=== PATIENT | female | born 1950 | race Caucasian/White ===

== ENCOUNTER 2019-04-09 18:58 | Inpatient (IN) | payer MEDICARE ==
[~2019-04-09] VITALS: Ht 160 cm; Wt 60.3 kg
[2019-04-09] VITALS (9 sets, daily range): BP systolic 137–158; BP diastolic 63–76
[2019-04-09 20:06] LABS: BASOPHILS 0.2 % (0-2); EOSINOPHILS 0.4 % (0-7); HEMATOCRIT 22.5 % (36.0-48.0); HEMOGLOBIN 7.6 g/dL (12-16); LYMPHOCYTES 12.3 % (15-50); MCH 29.9 pg (26.0-34.0); MCHC 33.8 g/dL (31.0-37.0); MCV 88.6 fL (80.0-100.0); MEAN PLATELET VOLUME 8.4 fL (7.4-10.4); NEUTROPHILS 77.1 % (40-80); PLATELET COUNT 278 10x3/uL (130-400); RBC 2.54 10x6/uL (4.00-5.40); RDW 15.4 % (11.5-14.5)
[2019-04-09 20:16] LABS: APTT 29.3 SECONDS (22.8-39.4); INR 1.23 (0.85-1.17)
[2019-04-09 20:21] LABS: ALBUMIN 2.4 g/dL (3.4-5.0); ALKALINE PHOSPHATASE 47 U/L (46-116); ALT (SGPT) 27 U/L (10-68); BILIRUBIN - TOTAL 0.23 mg/dL (0.2-1.3); CALC OSMOLALITY 292 mosm/kg (275-300); CALCIUM 8.6 mg/dL (8.5-10.1); CARBON DIOXIDE 32.2 mmol/L (21.0-32.0); CHLORIDE - SERUM 106 mmol/L (98-107); CREATININE - SERUM 0.6 mg/dL (0.6-1.3); GLUCOSE 111 mg/dL (74-106); POTASSIUM - SERUM 3.5 mmol/L (3.5-5.1); PROTEIN - SERUM 6.3 g/dL (6.4-8.2); SODIUM 145 mmol/L (136-145); UREA NITROGEN 21 mg/dL (7-18); eGFR NON AFRICAN AMERICAN > 90 mL/min (90-120)
--- NOTE | 2019-04-09 22:00 | NUR ---
BLODD STARTED AT THIS TIME. WITNESSED BY PASTOR YODER.
[2019-04-10] VITALS: BP 130/61
--- NOTE | 2019-04-10 00:19 | NUR ---
PT TRANSFERED WITH BLOOD INFUSING AT 200 ML/HR
[2019-04-10] MEDS ORDERED: FUROSEMIDE40 MG PO (01:16)
[2019-04-10] MEDS ORDERED: LIPITOR40 MG PO (01:17)
[2019-04-10] MEDS ORDERED: PERCOCET 5-3251 TAB PO (01:18)
[2019-04-10] MEDS ORDERED: AMBIEN5 MG PO (01:18)
[2019-04-10] MEDS ORDERED: COREG12.5 MG PO (01:19)
[2019-04-10] MEDS ORDERED: LANOXIN125 MCG PO (01:20)
[2019-04-10] MEDS ORDERED: PLAVIX75 MG PO (01:21)
[2019-04-10] MEDS ORDERED: COZAAR50 MG PO (01:21)
[2019-04-10] MEDS ORDERED: ZOLOFT100 MG PO (01:22)
[2019-04-10 02:18] VITALS: BP 130/61; BMI 23.6
[2019-04-10 04:00] VITALS: BP 134/59
[2019-04-10 05:14] LABS: APPEARANCE CLEAR (CLEAR); BILIRUBIN NEGATIVE (NEGATIVE); COLOR YELLOW (YELLOW); GLUCOSE NEGATIVE (NEGATIVE); KETONE NEGATIVE (NEGATIVE); NITRITE NEGATIVE (NEGATIVE); PROTEIN NEGATIVE (NEGATIVE); UROBILINOGEN NORMAL (NORMAL)
[2019-04-10 06:40] LABS: BASOPHILS 0.2 % (0-2); EOSINOPHILS 1.2 % (0-7); HEMATOCRIT 22.9 % (36.0-48.0); HEMOGLOBIN 7.9 g/dL (12-16); IMMATURE GRANULOCYTES 2.7 % (0-5); LYMPHOCYTES 13.5 % (15-50); MCH 30.4 pg (26.0-34.0); MCHC 34.5 g/dL (31.0-37.0); MCV 88.1 fL (80.0-100.0); MEAN PLATELET VOLUME 8.6 fL (7.4-10.4); MONOCYTES 12.2 % (2-11); NEUTROPHILS 70.2 % (40-80); RDW 15.9 % (11.5-14.5); WBC 9.8 10x3/uL (4.8-10.8)
[2019-04-10 06:55] LABS: CALC OSMOLALITY 293 mosm/kg (275-300); CALCIUM 8.1 mg/dL (8.5-10.1); CARBON DIOXIDE 32.6 mmol/L (21.0-32.0); CHLORIDE - SERUM 110 mmol/L (98-107); CREATININE - SERUM 0.6 mg/dL (0.6-1.3); GLUCOSE 99 mg/dL (74-106); MAGNESIUM - SERUM 1.9 mg/dL (1.8-2.4); PHOSPHOROUS 2.6 mg/dL (2.5-4.9); POTASSIUM - SERUM 3.5 mmol/L (3.5-5.1); PRO BNP 4652 pg/mL (0-125); SODIUM 146 mmol/L (136-145); UREA NITROGEN 21 mg/dL (7-18); eGFR NON AFRICAN AMERICAN > 90 mL/min (90-120)
[2019-04-10 06:59] LABS: PLATELET COUNT 222 10x3/uL (130-400)
[2019-04-10] MEDS ORDERED: PEPCID AC20 MG PO (07:23)
[2019-04-10] MEDS ORDERED: ALBUTEROL SULF8.5 GM INH (07:23)
[2019-04-10] MEDS ORDERED: ADVIL200 MG PO (07:24)
[2019-04-10 08:26] LABS: APTT 34.6 SECONDS (22.8-39.4); INR 1.3 (0.85-1.17); PROTIME 15.6 SECONDS (11.6-15.0)
[2019-04-10 08:44] VITALS: BP 134/58
[2019-04-10 10:05] VITALS: BMI 23.5
--- NOTE | 2019-04-10 12:59 | NUR ---
ARRIVED BACK FROM IR AT THIS TIME WITH DRAINAGE BAG NOTED TO LEFT SIDE WITH 500 ML EMPTIED. DENIES ANY PAIN OR DISCOMFORT AT THIS TIME. C/L IN REACH AT BEDSIDE.
--- NOTE | 2019-04-10 13:34 | NUR ---
FIRST UNIT OF PRBC STARTED AT THIS TIME VIA RN. NO C/O NOTED OR VOICED. ABLE TO VOICE NEEDS AND WANTS. C/L IN REACH AT BEDSIDE.
[2019-04-10 14:04] VITALS: Ht 160 cm; Wt 60.3 kg
--- NOTE | 2019-04-10 16:05 | NUR ---
SECOND UNIT OF PRBC WAS STARTED BY RN AT THIS TIME. TOLERATED FIRST UNIT WELL. NO C/O NOTED OR VOICED. C/L IN REACH AT BEDSIDE.
[2019-04-10 17:04] LABS: EOS BF 16 %; MACROPHAGES BF 4 %; MESOTHELIALS BF 3 %; NEUT - BF 74 %
[2019-04-10 20:00] VITALS: BP 168/92
[2019-04-10 20:03] VITALS: BP 120/73
--- NOTE | 2019-04-10 21:51 | NUR ---
PATIENT IN BED IV TO RIGHT FA WITH NS AT 50 AND PROTONIX AT [address] DRAN IN PLACE AND DRANING TO LEFT SIDE. SCD IN ROOM OFF AT THIS TIME. BSC AT BEDSIDE. ALERT AND ORENTED ABLE TO VOICE NEEDS AND WANTS TO STAFF. CALL LIGHT IN REACH BED LOW.
[2019-04-11] VITALS: BP 139/70
--- NOTE | 2019-04-11 01:14 | NUR ---
HOME MED NOTED IN ROOM COUNT COMPLETED WITH PT. PLACED IN PHARMACY BAG AND SEALED WITH PT. WILL TRUN OVER TO PHARMACY IN AM
[2019-04-11 03:18] LABS: HEMATOCRIT 34.6 % (36.0-48.0); HEMOGLOBIN 11.9 g/dL (12-16); MCH 30.8 pg (26.0-34.0); MCHC 34.4 g/dL (31.0-37.0); MCV 89.6 fL (80.0-100.0); MEAN PLATELET VOLUME 9.2 fL (7.4-10.4); PLATELET COUNT 357 10x3/uL (130-400); RBC 3.86 10x6/uL (4.00-5.40); RDW 15.3 % (11.5-14.5); WBC 28.6 10x3/uL (4.8-10.8)
[2019-04-11 03:29] LABS: CALCIUM 8.1 mg/dL (8.5-10.1); CHLORIDE - SERUM 106 mmol/L (98-107); MAGNESIUM - SERUM 1.7 mg/dL (1.8-2.4); SODIUM 140 mmol/L (136-145); UREA NITROGEN 17 mg/dL (7-18)
[2019-04-11 03:34] LABS: CALC OSMOLALITY 289 mosm/kg (275-300); CREATININE - SERUM 0.8 mg/dL (0.6-1.3); GLUCOSE 254 mg/dL (74-106); PHOSPHOROUS 3.5 mg/dL (2.5-4.9); POTASSIUM - SERUM 4.3 mmol/L (3.5-5.1); eGFR NON AFRICAN AMERICAN 75 mL/min (90-120)
[2019-04-11 03:43] LABS: LYMPHOCYTES 6 % (15-50); MONOCYTES 4 % (2-11); NEUTROPHILS 85 % (40-80); PLATELET ESTIMATE NORMAL
[2019-04-11 04:06] LABS: CKMB 1.7 U/L (0.0-3.6); CREATINE KINASE 45 UL (21-215)
[2019-04-11 04:07] LABS: TROPONIN-I 0.536 ng/mL (0.000-0.060)
--- NOTE | 2019-04-11 06:20 | NUR ---
CALL FROM TELEMETRY WITH HR OF 140, PT UP TO BSC AND BACK TO BED AT THAT TIME. MONITORD STAYED AT 140 FOR A SHORT TIME THEN INCREASED TO HR OF160 WITH SOB CALLED A RAPIDRESPONCE. EKG, CARDIAC ENZYMES , MANAGER MATERIALS MANAGEMENT CALED WITH NEW ORDER FOR CHEST X-RAY AND CONSULT FOT DR ANDERSON. dR MOE CALLED AND INFORMED OF HISTORY AND EVENT WELL INCREASED D-DIMER OF 2.78, AND TROPONIN I OF 0.536. DR. ANDERSON STATED THAT'S GOOD I WILL SEE HER IN AM.
--- NOTE | 2019-04-11 06:29 | NUR ---
SHAY TO TELEMETRY HR 125
[2019-04-11 08:59] VITALS: BP 145/87
[2019-04-11 14:37] VITALS: BP 97/53
[2019-04-11 16:49] VITALS: BP 96/54
--- NOTE | 2019-04-11 17:59 | NUR ---
I have reviewed this patient and I concur with the Shift Assessment completed by the Licensed Practical Nurse today this shift.
--- NOTE | 2019-04-11 19:46 | NUR ---
IN BED WITH TV ON, IN PLEASANT MOOD, DENIES ANY PAIN AT THIS TIME. PROTONIX DRIP TO RIGHT FOREARM INFUSING PER ODERS. WILL NOTE ANY CHANGE.
[2019-04-11 19:50] VITALS: BP 88/53
--- NOTE | 2019-04-11 23:52 | NUR ---
RESTING QUIETLY IN BED WITH NO S/S OF ANY ACUTE DISTRESS. TYLENOL GIVEN PRN AT 2230 RELATED TO DISCOMFORT WITH EFFECTIVE RESULTS. DRAINAGE BAG TO ABDOMEN PATENT WITH PURULENT DISCHARGE NOTED. BEDSIDE COMMODE NOTED. O2 AT 3 LITERS PER NC. WILL NOTE ANY CHANGE.
[2019-04-12] VITALS: BP 103/52
--- NOTE | 2019-04-12 02:22 | NUR ---
I have reviewed this patient and I concur with the Shift Assessment completed by the Licensed Practical Nurse today this shift.
[2019-04-12 04:00] VITALS: BP 103/61
[2019-04-12 05:25] LABS: BASOPHILS 0.2 % (0-2); EOSINOPHILS 1.6 % (0-7); HEMATOCRIT 28.6 % (36.0-48.0); HEMOGLOBIN 9.7 g/dL (12-16); IMMATURE GRANULOCYTES 1.5 % (0-5); LYMPHOCYTES 12.4 % (15-50); MCH 30.4 pg (26.0-34.0); MCHC 33.9 g/dL (31.0-37.0); MCV 89.7 fL (80.0-100.0); MEAN PLATELET VOLUME 9.1 fL (7.4-10.4); MONOCYTES 7.3 % (2-11); RBC 3.19 10x6/uL (4.00-5.40); RDW 15.2 % (11.5-14.5)
[2019-04-12 05:43] LABS: CALCIUM 8.3 mg/dL (8.5-10.1); CARBON DIOXIDE 26.5 mmol/L (21.0-32.0); CHLORIDE - SERUM 111 mmol/L (98-107); CREATININE - SERUM 0.6 mg/dL (0.6-1.3); MAGNESIUM - SERUM 1.8 mg/dL (1.8-2.4); PHOSPHOROUS 2.8 mg/dL (2.5-4.9); SODIUM 142 mmol/L (136-145); UREA NITROGEN 14 mg/dL (7-18); eGFR NON AFRICAN AMERICAN > 90 mL/min (90-120)
[2019-04-12 05:45] LABS: CALC OSMOLALITY 284 mosm/kg (275-300); GLUCOSE 109 mg/dL (74-106); POTASSIUM - SERUM 3.5 mmol/L (3.5-5.1)
[2019-04-12 05:50] LABS: PLATELET COUNT 247 10x3/uL (130-400); WBC 13.1 10x3/uL (4.8-10.8)
--- NOTE | 2019-04-12 06:41 | NUR ---
COMPLAINTS OF DISCOMFORT AT 0608, TYLENOL GIVEN PER ORDERS, EFFECTIVE. WILL NOTE ANY CHANGE. DID EXPRESS DESIRE TO GO BACK HOME TO [place] AT FIRST CHANCE.
[2019-04-12 07:14] VITALS: BP 115/62
--- NOTE | 2019-04-12 07:32 | NUR ---
PT SITTING IN ON SIDE OF BED. AAOX4. BROUGHT PT SOME COFFEE. NO S/S OF ACUTE DISTRESS. CL IN PLACE.
[2019-04-12 12:43] VITALS: BP 122/78
--- NOTE | 2019-04-12 16:49 | NUR ---
PT SIGNED AMA PAPERS. ENCOURAGED PT TO STAY WITH NO SUCCESS. DC IV WITH TIP IN TACT. ALL BELONGINGS CARRIED DOWN BY SISTER. PHARMACY RETURNED ALL HOME MEDICATION. TOOK PT OFF THE FLOOR VIA WC. NO S/S OF ACUTE DISTRESS.
--- NOTE | 2019-04-14 11:09 | EC ---
PATIENT:ANGELICA CASTRO DATE OF SERVICE: 04/09/19 SEX: F MEDICAL RECORD: [id number] DATE OF : [birth year] LOCATION:[facility] AGE OF PATIENT: 68 ADMISSION DATE: 04/09/19 REFERRING PHYSICIAN: INTERPRETING PHYSICIAN: FREDRICK SANCHEZ MD ECHOCARDIOGRAM REPORT ECHO CHARGES 4 ECHO COMPLETE Date: 04/11/19 CLINICAL DIAGNOSIS: TACHYCARDIA ECHOCARDIOGRAPHIC MEASUREMENTS (adult normal given) AC root (d.<3.7cm) 2.8 cm LV Septum d (<1.2 cm> 0.7 cm Valve Excursion 1.5 cm LV Septum (systole) 1.3 cm Left Atria (s.<4.0cm> 3.1 cm LVPW d(<1.2cm) 1.3 cm RV (d.<2.3cm) 3.1 cm LVPW (sytole) 1.4 cm LV diastole(<5.6CM) 6.2 cm MV E-F(>70mm/sec) cm LV systole 4.9 cm LVOT Diameter 1.5 cm MV exc.(>10mm) cm Est.ejection fraction (50-75%) % DOPPLER: LVIT cm/sec A 69 cm/sec E 45 cm/sec LA cm/sec RVSP 23.6 mmHg LVOT 74 cm/sec AOP1/2T m/s Asc. Ao 152 cm/sec RVOT 61 cm/sec RA cm/sec PA 82 cm/sec AV Gradient Peak 9.2 mmHg AV Mean 4.6 mmHg AV Area 0.9 cm MV Gradient Peak 3.7 mmHg MV Mean 1.6 mmHg MV Area cm COMMENTS: 5 Recordings Librarian: 5 [facility] Box Tender: 1 Dr. Sanchez TAPE# PACS Pericardial Effusion N DATE OF SERVICE: 04/11/2019 ECHOCARDIOGRAM DATE OF SERVICE: 04/11/2019 FINDINGS: 1. Left ventricular chamber size is dilated. Left ventricular systolic function is markedly reduced, overall ejection fraction 20%. 2. Left atrium is upper limits of normal. Right atrium and right ventricular ECHOCARDIOGRAM REPORT [id number] ANGELICA CASTRO chamber sizes are as well upper limits of normal. 3. Valvular structures have normal structure and motion. 4. Doppler interrogation reveals mild mitral regurgitation, mild tricuspid regurgitation, no other valvular insufficiency or stenosis. Pulmonary systolic pressure is normal estimated at 24 mmHg. 5. No evidence of pericardial effusion or left ventricular thrombus. TRANSINT:[id number] Voice Confirmation ID: [id number] DOCUMENT ID: [id number] FREDRICK SANCHEZ MD at 1109 CC: [id number] DICTATION DATE: 04/11/19 1511 OVERLAY OPERATOR: 04/11/19 1546 DIS IN 04/12/19 [place] [id number] [place] [id number]
--- NOTE | 2019-04-14 11:09 | CN ---
PATIENT NAME:ANGELICA CARR MEDICAL RECORD: [id number] : 46 LOCATION:[facility] ADMIT DATE: 04/09/19 ACCOUNT: [id number] CONSULTING PHYSICIAN: FREDRICK GARCIA MD REFERRING PHYSICIAN: DINESH ALMARAZ MD DATE OF CONSULTATION: 04/11/2019 DIAGNOSES: 1. Tachycardia. 2. Cardiomyopathy. 3. Intraabdominal abscess. 4. Hypertension. 5. Hyperlipidemia. HISTORY OF PRESENT ILLNESS: Mrs. Carr patient presents with GI issues, noncardiac issues, found to be very tachycardic. She was told in [place], approximately 2 years ago, that she had congestive heart failure and a weak heart. She is unsure of the workup that was done at that time. She was placed on losartan, carvedilol, digoxin and Lasix. She has not had any cardiac issues. She still does not have any cardiac issues since she has been admitted. Her heart rates have been as high as the 160s. It appears to be a sinus tachycardia. She denies any chest pain or chest discomfort. Her troponin is mildly elevated. She denies any overt heart failure symptomatology at this time. She has not been receiving her carvedilol or digoxin since she has been in. She is now taking p.o. PHYSICAL EXAMINATION: CONSTITUTIONAL/GENERAL APPEARANCE: Well nourished, well developed, appears stated age. EYES: Lids and conjunctivae noninjected. No discharge. No pallor. ENT: Lips within normal limit. No cyanosis. No pallor. NECK: Carotid arteries, bilateral normal upstroke. No bruits. No thrills. No jugular venous pressure or distention. CERVICAL LYMPH NODES: Nontender. Nonenlarged. THYROID: Not enlarged. No nodules. CARDIOVASCULAR: Precordial exam, nondisplaced. No heaves or pericardial thrills. Rate and rhythm, regular. Heart sounds, normal S1, normal S2. No S3, no gallop, no rub. Systolic murmur, not heard. Diastolic murmur, not heard. RESPIRATORY: Respiratory effort, unlabored. Normal curvature. No thoracic deformity. No chest wall tenderness. Percussion, resonant. Auscultation, clear. No wheezes, no rales, no rhonchi. ABDOMEN: Soft, nondistended, nontender. No abdominal pain, no vomiting and normal appetite. MUSCULOSKELETAL: No joint tenderness, normal gait, normal tone. SKIN: Warm and dry. OVERALL IMPRESSION: Cardiomyopathy, tachycardia, most likely none of this is new. We will restart her Coreg. We will increase the dose to 25 mg b.i.d. Her systolic blood pressures in the 140s and should tolerate this just fine. We will also restart her digoxin. We will get an echocardiogram. Other than the echocardiogram, most likely no other cardiac workup or treatment is necessary at this time. TRANSINT:[id number] Voice Confirmation ID: [id number] DOCUMENT ID: [id number] CONSULT REPORT [id number] ANGELICA CARR, FREDRICK WU at 1109 CC: [id number] DICTATION DATE: 04/11/19 1032 WOOL GRADER: 04/11/19 1053 DIS IN 04/12/19 [place] [id number] [place] [id number]
== END 2019-04-12 16:53 | disposition left against medical advice (07) | DRG 862 ==
LOC: D.ER 18:58 → D.MS 21:41
PROVIDERS: Family Medicine; Radiology Diagnostic Radiology; ADMIT Family Medicine; ATTEND Family Medicine
PROC: 0J9830Z Drainage of Abdomen Subcutaneous Tissue and Fascia with Drainage Device, Percutaneous Approach (ICD-10-PCS; principal; 2019-04-10 12:00)
DX: T81.43XA Infection following a procedure, organ and space surgical site, initial encounter (principal); K65.1 Peritoneal abscess; N17.9 Acute kidney failure, unspecified; D64.9 Anemia, unspecified; M19.90 Unspecified osteoarthritis, unspecified site; K21.9 Gastro-esophageal reflux disease without esophagitis; I50.9 Heart failure, unspecified; I25.10 Atherosclerotic heart disease of native coronary artery without angina pectoris